=== PATIENT | female | born 1975 | race Caucasian/White ===

== ENCOUNTER 2019-07-17 10:30 | Observation (INO) ==
[2019-07-17] MEDS ORDERED: Nitroglycerin 0.4 MG TAB.SUBL SL PRN (11:14)
[2019-07-17] MEDS ORDERED: Aspirin 81 MG TAB.CHEW PO ONE (11:15)
[2019-07-17 12:07] LABS: Basophils % 0.3 %; Eosinophils # 0.2 K/mcL (0.0-0.6); Eosinophils % 2.6 %; Hematocrit 37.6 % (35.3-44.9); Hemoglobin 13.2 g/dL (11.5-15.4); Immature Granulocytes % 0.2 % (0-4); Lymphocytes # 2.6 K/mcL (0.6-4.6); Lymphocytes % 29.4 %; Mean Corpuscular HGB Conc 35.1 g/dL (31.6-35.5); Mean Corpuscular Hemoglobin 31.5 pg (28.0-33.3); Mean Corpuscular Volume 89.7 fL (83.0-100.0); Mean Platelet Volume 10.3 fL (9.4-12.4); Monocytes # 0.5 K/mcL (0.0-1.3); Monocytes % 5.4 %; Neutrophils # 5.5 K/mcL (1.6-8.9); Platelet Count 308 K/mcL (140-400); Red Blood Count 4.19 M/mcL (3.82-4.97); Segmented Neutrophils % 62.1 %; White Blood Count 8.9 K/mcL (4.3-11.1)
[2019-07-17] MEDS ORDERED: Ketorolac 15 MG/ML VIAL IVP STA (12:28)
[2019-07-17 12:49] LABS: Prothrombin Time 11.9 Seconds (9.4-12.1)
[2019-07-17 14:06] LABS: BUN/Creatinine Ratio 13 (6-26); Blood Urea Nitrogen 11 mg/dL (6-20); Calcium 8.8 mg/dL (8.6-10.3); Carbon Dioxide 26 mEq/L (23-29); Chloride 104 mEq/L (98-107); Glucose 139 mg/dL (70-105); Lipase 36 Units/L (11-82); Osmolality,Calculated 286 (280-300); Potassium 3.7 mEq/L (3.5-5.1); Sodium 137 mEq/L (136-145); eGFR For African Americans > 60 (> 60); eGFR For Non-African Americans > 60 (> 60)
[2019-07-17 14:07] LABS: Troponin I < 0.03 ng/mL (< 0.04)
[2019-07-17] MEDS ORDERED: Morphine Sulfate 2 MG/ML SYRINGE IVP STA (14:12)
[2019-07-17] MEDS ORDERED: Naloxone 0.4 MG/ML INJ IVP PRN (16:06)
[2019-07-17] MEDS ORDERED: hydrOXYzine pamoate 25 MG CAPSULE PO PRN (16:08)
[2019-07-17] MEDS ORDERED: *HR* Dextrose 50 % in Water (Syg) 50 ML SYRINGE IVP PRN (16:51)
[2019-07-17] MEDS ORDERED: D5% in Water 1,000 ML IVC PRN (16:51)
[2019-07-17] MEDS ORDERED: Dextrose Gel 15 GM/37.5 ML TUBE PO PRN ×2 (16:51)
[2019-07-17 17:15] LABS: Estimated Average Glucose 189 mg/dl
[2019-07-17] MEDS: Nicotine 21 MG PATCH.TD24 TD SCH (19:02)
[2019-07-17] MEDS: *HR* Heparin 5,000 UNIT/ML VIAL SQ SCH (19:06)
[2019-07-17] MEDS: Gabapentin 100 MG CAPSULE PO SCH (21:16)
[2019-07-18 05:34] LABS: Basophils # 0.1 K/mcL (0.0-0.2); Basophils % 0.5 %; Eosinophils # 0.3 K/mcL (0.0-0.6); Eosinophils % 3.2 %; Hematocrit 38.2 % (35.3-44.9); Hemoglobin 12.4 g/dL (11.5-15.4); Immature Granulocytes % 0.3 % (0-4); Lymphocytes # 2.7 K/mcL (0.6-4.6); Lymphocytes % 28.4 %; Mean Corpuscular HGB Conc 32.5 g/dL (31.6-35.5); Mean Corpuscular Volume 95.5 fL (83.0-100.0); Mean Platelet Volume 10.1 fL (9.4-12.4); Monocytes # 0.6 K/mcL (0.0-1.3); Monocytes % 5.7 %; Neutrophils # 5.9 K/mcL (1.6-8.9); Platelet Count 268 K/mcL (140-400); Red Cell Distribution Width 14.2 % (11.5-14.5); Segmented Neutrophils % 61.9 %; White Blood Count 9.6 K/mcL (4.3-11.1)
[2019-07-18] MEDS: *HR* Heparin 5,000 UNIT/ML VIAL SQ SCH (05:44)
[2019-07-18 06:07] LABS: BUN/Creatinine Ratio 21 (6-26); Blood Urea Nitrogen 17 mg/dL (6-20); Calcium 8.7 mg/dL (8.6-10.3); Carbon Dioxide 23 mEq/L (23-29); Chloride 105 mEq/L (98-107); Glucose 161 mg/dL (70-105); Magnesium 1.7 mg/dL (1.6-2.6); Osmolality,Calculated 289 (280-300); Phosphorous 3.6 mg/dL (2.7-4.5); Potassium 3.9 mEq/L (3.5-5.1); Sodium 137 mEq/L (136-145); Troponin I < 0.03 ng/mL (< 0.04); eGFR For African Americans > 60 (> 60); eGFR For Non-African Americans > 60 (> 60)
[2019-07-18 07:30] VITALS: BP 94/53
[2019-07-18] MEDS ORDERED: Insulin LISPRO 300 UNITS/3 ML VIAL SQ SCH (07:30)
[2019-07-18] MEDS: Nicotine 21 MG PATCH.TD24 TD SCH (07:44)
[2019-07-18] MEDS ORDERED: FLUoxetine 20 MG CAPSULE PO SCH (09:00)
[2019-07-18] MEDS ORDERED: Aspirin 81 MG TAB.CHEW PO SCH (09:00)
[2019-07-18] MEDS: Gabapentin 100 MG CAPSULE PO SCH (10:00)
== END 2019-07-18 11:49 | disposition home or self-care (01) ==
LOC: 3BNU 10:30 → EMEROOARM 10:30 → SUATTDRO 15:59 → 3BNU 17:22
PROVIDERS: ADMIT Family Medicine; ATTEND Internal Medicine